=== PATIENT | male | born 1985 | race Caucasian/White ===

== ENCOUNTER 2018-11-19 02:29 | Emergency (ER) | payer OTHER ==
[~2018-11-19] VITALS: Ht 175.3 cm; Wt 99.8 kg
[~2018-11-19 02:29] MED LIST: PEPCID40 MG PO; POLYSPORIN OI28.3 GM; ZANTAC150 MG PO
--- OUTSIDE RECORDS SUMMARY | 2018-11-19 02:33 | XMS REPORT ---
Author Author [facility] Address Unknown Phone Unavailable Care Team Providers Care Strategic Account Manager Name Role Phone DAVID BURDEN Unavailable Unavailable Problems This patient has no known problems. Allergies, Adverse Reactions, Alerts This patient has no known allergies or adverse reactions. Medications This patient has no known medications. Results Test Description Test Time Test Comments Text Results Atomic Results Result Comments RIBS UNILAT W/CXR [place] [address] Patient Name: MO KU MR #: [id number] : 1985 Age/Sex: 32/M Req #: [id number] [facility] Physician: Ordered by: BERTRAM TESFAYE, DAVID Guillen MD Report #: [id number] Location: [facility] Room/Bed: Procedure: [id number] DX/RIBS UNILAT W/CXR Exam Date: 09/03/17 Exam Time: 1210 REPORT STATUS: Signed PROCEDURE: X-RAY UNILATERAL RIBS WITH CHEST X-RAY COMPARISON: None. INDICATIONS: LEFT UPPER ANTERIOR RIB PAIN FINDINGS: Normal cardiomediastinal silhouette. No focal consolidation. No parenchymal mass. No pleural effusion or pneumothorax. No lymphadenopathy. No acute fracture or dislocation. CONCLUSION: No acute radiographic abnormality. Dictated by: Yamini Escobar M.D. on 09/03/2017 at 13:10 Electronically approved by: Yamini Escobar M.D. on 09/03/2017 at 13:10 Dictated By: YAMINI ESCOBAR MD [id number] Transcribed By: BRI on 09/03/17 1310 COPY TO: DAVID BURDEN
[2018-11-19] MEDS ORDERED: PANTOPRAZOLE 40 MG 10ML VIAL IV STA (02:53)
[2018-11-19] MEDS ORDERED: LIDOCAINE VISC 2% SOLN 15 ML UDC PO ONE (03:00)
[2018-11-19] MEDS ORDERED: BELLADONNA ALK/PHENOBARBITAL 5 ML UDC PO ONE (03:00)
[2018-11-19] MEDS ORDERED: MAGNESIUM/ALUMINUM/SIMETHICONE 30 ML UDC PO ONE (03:00)
[2018-11-19 03:27] LABS: AMPHETAMINES SCREEN,URINE NEGATIVE (NEGATIVE); BENZODIAZEPINES SCREEN,URINE NEGATIVE (NEGATIVE); CLARITY,URINE CLEAR (CLEAR); COLOR,URINE YELLOW (YELLOW); KETONES,URINE NEGATIVE (NEGATIVE); LEUKOCYTE ESTERASE ,URINE NEGATIVE (NEGATIVE); NITRITE,URINE NEGATIVE (NEGATIVE); PHENCYCLIDINE SCREEN,URINE NEGATIVE (NEGATIVE); PROTEIN,URINE DIPSTICK NEGATIVE (NEGATIVE)
[2018-11-19 03:28] LABS: BILIRUBIN,URINE NEGATIVE (NEGATIVE); URINE UROBILINOGEN 0.2 mg/dL (0.2 - 1)
[2018-11-19 03:33] LABS: ALANINE AMINOTRANSFERASE 95 IU/L (0-55); ALBUMIN 4.2 g/dL (3.5-5.0); ALBUMIN/GLOBULIN RATIO 1.3 (0.8-2.0); ALKALINE PHOSPHATASE 92 IU/L (40-150); AMYLASE 48 U/L (25-125); ANION GAP 18.2 mmol/L (8-16); BLOOD UREA NITROGEN 18 mg/dL (7-26); BUN/CREATININE RATIO 17 (6-25); CALCIUM 9.8 mg/dL (8.4-10.2); CARBON DIOXIDE 24 mmol/L (22-29); CHLORIDE 101 mmol/L (98-107); CREATINE KINASE 197 IU/L (30-200); CREATININE, SERUM 1.09 mg/dL (0.72-1.25); EST GLOMERULAR FILTRATION RATE > 60 ML/MIN (60-); GLUCOSE 110 mg/dL (74-118); LIPASE 36 U/L (8-78); POTASSIUM 4.2 mmol/L (3.5-5.1); SODIUM 139 mmol/L (136-145)
--- NOTE | 2018-11-19 03:40 | Diagnostic Imaging Report ---
CHEST 2 VIEWS, Technique: CHEST 2 VIEWS Comparison: 09/03/2017 Clinical history: Chest pain DISCUSSION: Unremarkable appearance of the heart, mediastinum, lungs and pleural spaces. IMPRESSION: No acute abnormality Signed by: Dr Alisha Dang MD on 11/19/2018 3:36 AM
[2018-11-19 03:46] LABS: EOSINOPHILS % 2.9 % (0.0-6.0); HEMOGLOBIN 16.4 g/dL (14.0-18.0); LYMPHOCYTES % 32.3 % (18.0-39.1); MEAN CORPUSCULAR HEMOGLOBIN 30.2 pg (28-32); MEAN CORPUSCULAR HGB CONC 34.9 g/dL (31-35); MEAN CORPUSCULAR VOLUME 86.6 fL (81-99); MONOCYTES % 12.5 % (4.4-11.3); NEUTROPHILS % 51.9 % (38.7-80.0); PLATELET COUNT 300 x10e3/uL (140-360); RED BLOOD COUNT 5.43 x10e6/uL (4.3-5.7); RED CELL DISTRIBUTION WIDTH 37.9 % (11.7-14.4)
[2018-11-19 03:47] LABS: BASOPHILS % 0.2 % (0.0-1.0); EOSINOPHILS # (AUTO) 0.2 (0.0-0.4); LYMPHOCYTES # (AUTO) 2.6 (1.0-3.2); NEUTROPHILS # (AUTO) 4.2 (2.1-6.9)
[2018-11-19 04:03] LABS: BACTERIA,URINE FEW /HPF; EPITHELIAL CELLS,URINE RARE /LPF; MUCUS,URINE MODERATE (RARE); RBC,URINE 0-5 /HPF (0-5); WBC,URINE (MAN) 0-5 /HPF (0-5)
== END 2018-11-19 04:41 | disposition home or self-care (01) ==
LOC: ER 02:29
DX: R10.13 Epigastric pain (principal); K29.20 Alcoholic gastritis without bleeding; K21.0 Gastro-esophageal reflux disease with esophagitis
CPT/HCPCS: 36415; 71046; 80053; 80307; 81001; 82150; 82550; 82553; 83690; 84484; 85025; 93005; 99284; C9113